=== PATIENT | female | born 1965 | race Caucasian/White ===

== ENCOUNTER → 2017-02-12 | Outpatient (CLI) | payer OTHER ==
[~2017-02-12] MED LIST: AMITRIPTYLINE H25 MG PO; ATARAX,VISTARIL25 MG PO; BACLOFEN10 MG PO; CYMBALTA60 MG PO; Cymbalta PO; DETROL2 MG PO; DITROPAN XL10 MG PO; Dyazide, Maxzide 37. PO; LAMICTAL100 MG PO; LYRICA150 MG PO; MOTRIN800 MG PO; NAPROXEN500 MG PO; NEURONTIN600 MG PO; OXYCODONE HCL10 MG PO; PERCOCET 10/1 TABLET PO; PERCOCET 5/31 TABLET PO; Proventil,Ventolin H IH; SEROQUEL100 MG PO; ULTRAM50 MG PO; VALIUM5 MG PO; Valium PO; WELLBUTRIN SR150 MG PO; ZANAFLEX4 MG PO; [UNRECOGNIZED DRUG - OTHER] PO
== END | disposition home or self-care (01) ==
LOC: RES 09:53
DX: Z01.818 Encounter for other preprocedural examination (principal); E66.9 Obesity, unspecified; R94.2 Abnormal results of pulmonary function studies
CPT/HCPCS: 94060; 94726; 94729

== ENCOUNTER 2017-03-05 08:48 | Inpatient (IN) | payer OTHER ==
[~2017-03-05] VITALS: Ht 170.2 cm; Wt 122.2 kg
[~2017-03-05 08:48] MED LIST changes: +DESYREL 150 MG150 MG PO; +DOLOPHINE HCL5 MG PO; +DYAZIDE, MA1 CAPSULE PO; +LATUDA60 MG PO
[2017-03-05 17:38] VITALS: BP 175/85
[2017-03-05 19:44] VITALS: BP 148/64
[2017-03-05 23:28] VITALS: BP 132/60
[2017-03-06 04:27] VITALS: BP 152/64
[2017-03-06 05:27] LABS: BASOPHIL (%) 0.3 % (0-1); EOSINOPHIL (%) 0.2 % (0-5); HEMATOCRIT 42.3 % (36.0-46.0); HEMOGLOBIN 14.3 G/DL (11.9-15.5); IMMATURE GRANULOCYTE (%) 0.5 % (0.0-0.7); LYMPHOCYTE (%) 8.9 % (15-42); LYMPHOCYTE COUNT 1.1 K/uL (1.0-2.8); MCH 30.4 PG (29.0-34.0); MCHC 33.8 G/DL (30.0-36.0); MCV 89.8 FL (83-99); MONOCYTE (%) 4.8 % (3-12); MONOCYTE COUNT 0.6 K/uL (0-0.8); NEUTROPHIL (%) 85.3 % (45-76); NEUTROPHIL COUNT 10.6 K/uL (1.8-6.4); RBC DIS.WIDTH-SD 39.8 % (39-53); RED BLOOD COUNT 4.71 M/uL (3.80-5.20); WHITE BLOOD COUNT 12.4 K/uL (4.1-10.2)
[2017-03-06 05:33] LABS: PLATELET COUNT 191 K/uL (156-360)
[2017-03-06 07:31] VITALS: BP 159/72
[2017-03-06 11:22] VITALS: BP 156/91
[2017-03-06 15:23] VITALS: BP 152/68
[2017-03-06 19:46] VITALS: BP 180/83
[2017-03-07 00:03] VITALS: BP 172/84
[2017-03-07 00:32] VITALS: BP 154/75
[2017-03-07 04:33] VITALS: BP 167/84
[2017-03-07 05:24] VITALS: BP 125/75
[2017-03-07 06:51] LABS: BASOPHIL (%) 0.5 % (0-1); BASOPHIL COUNT 0.1 K/uL (0-0.1); EOSINOPHIL (%) 0.7 % (0-5); EOSINOPHIL COUNT 0.1 K/uL (0-0.3); HEMATOCRIT 43.7 % (36.0-46.0); HEMOGLOBIN 14.5 G/DL (11.9-15.5); IMMATURE GRANULOCYTE (%) 0.5 % (0.0-0.7); LYMPHOCYTE (%) 17.3 % (15-42); LYMPHOCYTE COUNT 1.6 K/uL (1.0-2.8); MCH 30.1 PG (29.0-34.0); MCHC 33.2 G/DL (30.0-36.0); MCV 90.9 FL (83-99); MONOCYTE (%) 4.9 % (3-12); MONOCYTE COUNT 0.5 K/uL (0-0.8); NEUTROPHIL (%) 76.1 % (45-76); NEUTROPHIL COUNT 7.1 K/uL (1.8-6.4); PLATELET COUNT 168 K/uL (156-360); RBC DIS.WIDTH-SD 40.3 % (39-53); RED BLOOD COUNT 4.81 M/uL (3.80-5.20); WHITE BLOOD COUNT 9.4 K/uL (4.1-10.2)
[2017-03-07 07:56] VITALS: BP 176/79
[2017-03-07] MEDS ORDERED: PROTONIX40 MG PO (11:41)
[2017-03-07] MEDS ORDERED: OXYCODONE HCL10 MG PO (11:41)
== END 2017-03-07 12:41 | disposition home or self-care (01) | DRG 621 ==
LOC: 2SOUTH 08:48 → ENRESERV 13:37 → 2SOUTH 14:29 → ENRESERV 14:38 → 2SOUTH 15:23 → 3WEST 17:09 → ENRESERV 23:51 → CANRESERV 03-06 03:25 → ENRESERV 03-06 10:28 → 2EAST 03-06 17:28
PROVIDERS: Surgery
PROC: 0DB64Z3 Excision of Stomach, Percutaneous Endoscopic Approach, Vertical (ICD-10-PCS; principal; 2017-03-05)
DX: E66.01 Morbid (severe) obesity due to excess calories (principal); Z68.41 Body mass index [BMI] 40.0-44.9, adult; F31.9 Bipolar disorder, unspecified; F41.8 Other specified anxiety disorders; M79.7 Fibromyalgia; I10 Essential (primary) hypertension; G89.29 Other chronic pain; J45.909 Unspecified asthma, uncomplicated; Z87.891 Personal history of nicotine dependence
CPT/HCPCS: 82948; 85025; C9113; J0131; J0171; J0330; J0360; J1100; J1170; J1580; J1644; J1650; J1885; J2270; J2405; J2710; J2765; J3010; J3480; J7050; J7120; Q0169; S0020

== ENCOUNTER 2017-04-02 08:46 | Emergency (ER) | payer OTHER ==
[~2017-04-02] VITALS: Ht 170.2 cm; Wt 110.5 kg
[~2017-04-02 08:46] MED LIST changes: +PROTONIX40 MG PO
[2017-04-02 09:26] LABS: HEMATOCRIT 46.1 % (36.0-46.0); MCH 30.5 PG (29.0-34.0); MCHC 34.7 G/DL (30.0-36.0); PLATELET COUNT 121 K/uL (156-360); RBC DIS.WIDTH-CV 12.6 % (11.8-14.6); RBC DIS.WIDTH-SD 40.6 % (39-53); RED BLOOD COUNT 5.24 M/uL (3.80-5.20)
[2017-04-02 09:37] LABS: CHLORIDE 103 mEq/L (99-109); POTASSIUM 3.6 mEq/L (3.7-5.4); SODIUM 140 mEq/L (136-147)
[2017-04-02 09:38] LABS: MAGNESIUM 1.8 mg/dL (1.3-2.7)
[2017-04-02 09:39] LABS: GLUCOSE 112 mg/dL (70-99)
[2017-04-02 09:43] LABS: CREATININE 0.8 mg/dL (0.6-1.3); GFR ESTIMATE (CALCULATED) > 59 mL/min/
[2017-04-02 09:44] LABS: UREA NITROGEN (BUN) 11 mg/dL (9-23)
[2017-04-02] MEDS ORDERED: ZOFRAN ODT4 MG PO (11:37)
[2017-04-02] MEDS ORDERED: ZOFRAN ODT8 MG PO (11:42)
[2017-04-02] MEDS ORDERED: PROMETHAZINE HC25 M1 PO (12:00)
[2017-04-02 12:14] VITALS: BP 140/100
[2017-04-05] MEDS ORDERED: PROMETHAZINE HC25 M1 PO (14:44)
[2017-04-05] MEDS ORDERED: OXYCODONE HCL10 MG PO (14:45)
[2017-04-05] MEDS ORDERED: PROTONIX40 MG PO (14:46)
[2017-04-05] MEDS ORDERED: PROAIR HFA8.5 GM IH (14:47)
[2017-04-05] MEDS ORDERED: CYMBALTA60 MG PO (14:47)
[2017-04-05] MEDS ORDERED: CARAFATE1 GM PO (14:48)
== END 2017-04-02 12:21 | disposition home or self-care (01) ==
LOC: EME 08:46
PROVIDERS: Physician Assistant
DX: R11.2 Nausea with vomiting, unspecified (principal); R93.5 Abnormal findings on diagnostic imaging of other abdominal regions, including retroperitoneum; M79.7 Fibromyalgia; J45.909 Unspecified asthma, uncomplicated; I10 Essential (primary) hypertension; F32.9 Major depressive disorder, single episode, unspecified; Z87.891 Personal history of nicotine dependence; Z79.891 Long term (current) use of opiate analgesic; Z98.84 Bariatric surgery status; Z98.890 Other specified postprocedural states; Z98.1 Arthrodesis status; Z88.6 Allergy status to analgesic agent; Z88.0 Allergy status to penicillin; Z88.8 Allergy status to other drugs, medicaments and biological substances
CPT/HCPCS: 74177; 80048; 83735; 85027; 99281; 99285; J1885; J2405; J7040

== ENCOUNTER → 2017-04-06 | Outpatient (CLI) | payer OTHER ==
[~2017-04-06] VITALS: Ht 170.2 cm; Wt 107.5 kg
[~2017-04-06] MED LIST changes: +CARAFATE1 GM PO; +PROAIR HFA8.5 GM IH; +PROMETHAZINE HC25 M1 PO; +ZOFRAN ODT4 MG PO; +ZOFRAN ODT8 MG PO
== END | disposition home or self-care (01) ==
LOC: AMB 11:30
PROC: 0DJ08ZZ Inspection of Upper Intestinal Tract, Via Natural or Artificial Opening Endoscopic (ICD-10-PCS; principal; 2017-04-06)
DX: K21.9 Gastro-esophageal reflux disease without esophagitis (principal)